=== PATIENT | female | born 1930 | race Asian ===

== ENCOUNTER 2020-08-25 02:05 | Emergency (ER) | payer MEDICARE, OTHER ==
[~2020-08-25] VITALS: Ht 157.5 cm; Wt 57.6 kg
--- NOTE | 2020-08-25 03:00 | NUR ---
[facility] 18G PIV LINE STARTED W/ GOOD BLOOD DRAW.
--- NOTE | 2020-08-25 03:00 | NUR ---
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 DENIES KO, PT NOT ON BLOOD THINNER. PT AAOX4. RESPIRATIONS EVEN AND UNLABORED. PT APPEARS UNCOMFORTABLE, GAURDING R UPPER EXT AND TEARFUL. NOTED HYPERTENSION. NO ACUTE DISTRESS NOTED AT THIS TIME. WILL CONTINUE TO MONITOR
[2020-08-25] MEDS ORDERED: ONDANSETRON HCL/PF 4 MG/2 ML VIAL ONE (03:04)
[2020-08-25] MEDS ORDERED: MORPHINE SULFATE INJ 4 MG/ML DISP.SYRIN ONE (03:05)
[2020-08-25] MEDS ORDERED: ETOMIDATE 2 MG/ML VIAL ONE ×2 (03:20→04:42)
--- NOTE | 2020-08-25 03:23 | NUR ---
DR. MURCIA, 3 RN, RT, AND PAVING INSPECTOR AT BEDSIDE FOR REDUCTION OF RIGHT SHOULDER UNDER MODERATE SEDATION. CONSENT FORM SIGNED AND PLACED IN CHART.
[2020-08-25] MEDS ORDERED: ONDANSETRON HCL/PF 4 MG/2 ML VIAL IV ONE (03:30)
[2020-08-25] MEDS ORDERED: MORPHINE SULFATE INJ 2 MG/ML DISP.SYRIN IV ONE (03:30)
--- NOTE | 2020-08-25 03:38 | NUR ---
PT BROUGHT BY RADIOLOGY TO CT AND XRAY
--- NOTE | 2020-08-25 03:45 | NUR ---
RT called to bedside for moderate sedation standby. pt found on 3lnc saturation 96%. sitting in semi fritz position. no sob, no resp distress. ambu bag at standby. pt a&o3. during procedure pt saturation range was 95-99%. post procedure, pt awake and alert. pt saturation 99%. pt a&o3. no sob, no resp distress.
--- NOTE | 2020-08-25 03:58 | NUR ---
PT AMBULATORY TO RESTROOM WITH ASSISTANCE
[2020-08-25] MEDS ORDERED: ETOMIDATE 2 MG/ML VIAL IV ONE ×2 (04:00→05:00)
--- NOTE | 2020-08-25 05:00 | NUR ---
PT RETAINS RANGE OF MOTION OF RIGHT ARM. PT OK TO BE DISCHARGED PER DR MURCIA.
--- NOTE | 2020-08-25 05:30 | NUR ---
Patient discharged to home in stable condition. Written and verbal after care instructions given. Patient verbalizes understanding of instruction. Pt assisted to caregiver's car via wheelchair in stable condition. IV removed. Catheter intact and site benign. Pressure and 4x4 applied to site. No bleeding noted.
[2020-08-25 05:48] VITALS: BP 168/79
== END 2020-08-25 05:48 | disposition home or self-care (01) ==
LOC: ER 02:07
DX: S43.084A Other dislocation of right shoulder joint, initial encounter (principal); R51.9 Headache, unspecified; I10 Essential (primary) hypertension; Z88.2 Allergy status to sulfonamides; W18.39XA Other fall on same level, initial encounter; Y93.89 Activity, other specified; Y92.89 Other specified places as the place of occurrence of the external cause; Y99.8 Other external cause status
CPT/HCPCS: 23650; 70450; 73030 ×2; 96374; 96375; 99152; 99285; A6253; A6403; J2270; J2405; J3490 ×2; J7030; G0500